=== PATIENT | male | born 1975 | race Caucasian/White ===

== ENCOUNTER 2017-08-07 14:54 | Emergency (ER) | payer OTHER ==
[2017-08-07 15:14] VITALS: BP 145/88; PULSE 71; TEMP 98.7; BMI 34.8
[2017-08-07] MEDS ORDERED: ACETAMINOPHEN 325 MG TABLET (FP) PO ONE (15:14)
--- NOTE | 2017-08-07 15:14 | PDOC ---
Rapid Medical Evaluation Time Seen by Provider: 08/07/17 15:10 Medical Evaluation: Allergies Allergy/AdvReac Type Severity Reaction Status Date / Time No Known Allergies Allergy Verified 08/07/17 15:09 08/07/17 15:10 I have performed a brief in person evaluation of this patient. The patient presents with chief complaint of : dizzyness and hand numbness and feet numbness followed by . history of TIA. Pt has these symptoms for "a while" has had workups in the past. history HTN, asthma. Pertinent PE findings: none I have ordered the following: EKG The patient will proceed to the ER for further evaluation.
[2017-08-07] MEDS ORDERED: IBUPROFEN 600 MG TABLET (FP) PO ONE ×2 (18:45→20:18)
[2017-08-07] MEDS ORDERED: ACETAMINOPHEN 325 MG TABLET (FP) ONE (20:17)
[2017-08-07] MEDS ORDERED: CYCLOBENZAPRINE HCL 10 MG TABLET (FP) ONE (20:18)
[2017-08-07] MEDS ORDERED: CYCLOBENZAPRINE HCL 5 MG TABLET PO ONE (20:30)
--- NOTE | 2017-08-07 22:25 | PDOC ---
Attending Attestation - Resident Resident Name: RubénMarybethy - ED Attending Attestation I have performed the following: I have examined & evaluated the patient, The case was reviewed & discussed with the resident, I agree w/resident's findings & plan, Exceptions are as noted - Medical Decision Making 08/07/17 22:24 I, Dr. Guerita Fonseca, DO, attest that this document has been prepared under my direction and personally reviewed by me in its entirety. I further attest, that it accurately reflects all work, treatment, procedures and medical decision -making performed by me. 08/07/17 22:27 a/p: 42yo male with neck pain and hand tingling x 3 years -+phalens, +tinels does have mild c spine ttp, no step offs or deformitis neuro intact suspect peripheral neuropahty will obtain ct cervical spine -discussed with Dr. Hemphill who will see the patient for poss carpel tunnel 08/07/17 22:29 ct shows herniated disc disease will give neurosx follow up pt will need outpt mri 08/07/17 22:35 discussed imaging results with the patient. pt feeling better. given report of ct cervical spine recommend outpt mri will give neurosx and hand surgery for followup case discussed earlier with dr. tejeda family agrees with the plan answered all questions 08/07/17 23:05 <Guerita Fonseca - Last Filed: 08/07/17 23:05> - HPI HPI: 08/07/17 23:14 The patient is a 42 year old male, with a significant past medical history of asthma, hypertension, acute TIA, who presents to the emergency department complaining of left arm tingling and bilateral hand tingling for approx. 3 years. The patient reports the tingling is mostly in his left arm and occurs when he is resting his arm on the interior side of his car when driving home. 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 The patient reports he has seen his neurologist, security installation sales technician and PCP prior to todays visit and they have all worked him up with normal results. The patient reports all prior MRIs have been normal. He denies recent fever, chills, headache or dizziness. He denies recent nausea, vomit, diarrhea or constipation. He denies recent chest pain or shortness of breath. - Physicial Exam PE: 08/07/17 23:15 GENERAL: Awake, alert, and fully oriented, in no acute distress HEAD: No signs of trauma EYES: PERRLA, EOMI, sclera anicteric, conjunctiva clear ENT: Auricles normal inspection, hearing grossly normal, nares patent, oropharynx clear without exudates. Moist mucosa NECK: +Tenderness to cervical spine. Normal ROM, supple, no lymphadenopathy, JVD , or masses BACK: +Paraspinal tenderness. LUNGS: Breath sounds equal, clear to auscultation bilaterally. No wheezes, and no crackles HEART: Regular rate and rhythm, normal S1 and S2, no murmurs, rubs or gallops ABDOMEN: Soft, nontender, normoactive bowel sounds. No guarding, no rebound. No masses EXTREMITIES: +Tinels. +Phalen maneuvers. Normal range of motion, no edema. No clubbing or cyanosis. No cords, erythema, or tenderness NEUROLOGICAL: Cranial nerves II through XII grossly intact. Normal speech, normal gait SKIN: Warm, Dry, normal turgor, no rashes or lesions noted. <Scott Molina - Last Filed: 08/07/17 23:52>
--- NOTE | 2017-08-07 22:30 | PDOC ---
History of Present Illness - General Chief Complaint: Chest Pain Stated Complaint: CHEST PAIN Time Seen by Provider: 08/07/17 15:10 - History of Present Illness Initial Comments: 08/07/17 23:03 42M with 3year history of tingling in hands, wrists, elboys and sharp pains in legs. Saw neurologist, co chairman and PCP who never found anything abnormal. MRI's, neck cta's never found anything. Diagnosed with TIA in this ED in the past for tingling sensation to one half on her face. Presents today for similar causes and was worried it was "another TIA" 08/07/17 23:13 Old CTA neck showed: Mild anterior spondylosis at C5-C6 level. C3-C4 mild anterior and posterior spur formation slightly deforming the thecal sac and probably slightly flattening the left anterior surface of the cervical cord Past History - Past Medical History Allergies/Adverse Reactions: Allergies Allergy/AdvReac Type Severity Reaction Status Date / Time No Known Allergies Allergy Verified 08/07/17 15:09 Home Medications: Ambulatory Orders Albuterol Sulfate 5 mg IH QID PRN 08/07/17 Cyclobenzaprine HCl [Flexeril -] 10 mg PO HS #10 tablet 08/07/17 Fluticasone/Salmeterol [Advair 250-50 Diskus] 1 each IH QID PRN 08/07/17 Ibuprofen [Motrin -] 600 mg PO BID PRN #15 tablet 08/07/17 Nebivolol [Bystolic -] 5 mg PO DAILY 08/07/17 Asthma: Yes Cancer: No Cardiac Disorders: No CVA: No COPD: No CHF: No Dementia: No Diabetes: No HTN: Yes Seizures: No - Surgical History Neurologic Surgery: No - Immunization History Immunization Up to Date: Yes - Suicide/Smoking/Psychosocial Hx Smoking History: Never smoked Have you smoked in the past 12 months: No Number of Cigarettes Smoked Daily: 0 Cigars Per Day: 0 Hx Alcohol Use: No Drug/Substance Use Hx: No Substance Use Type: None Hx Substance Use Treatment: No Review of Systems - Review of Systems Able to Perform ROS?: Yes Constitutional: No: Symptoms Reported HEENTM: No: Symptoms Reported Respiratory: No: Symptoms reported Cardiac (ROS): No: Symptoms Reported ABD/GI: No: Symptoms Reported : No: Symptoms Reported Musculoskeletal: Yes: See HPI Integumentary: No: Symptoms Reported Neurological: Yes: See HPI All Other Systems: Reviewed and Negative *Physical Exam - Vital Signs Last Vital Signs Temp Pulse Resp BP Pulse Ox 98.7 F 71 19 145/88 98 08/07/17 15:10 08/07/17 15:10 08/07/17 15:10 08/07/17 15:10 08/07/17 15:10 - Physical Exam General Appearance: Yes: Nourished, Appropriately Dressed. No: Apparent Distress HEENT: positive: EOMI, RENATO, Normal ENT Inspection Neck: negative: Tender Respiratory/Chest: positive: Lungs Clear, Normal Breath Sounds. negative: Chest Tender, Respiratory Distress Cardiovascular: positive: Regular Rhythm, Regular Rate, S1, S2 Gastrointestinal/Abdominal: positive: Normal Bowel Sounds, Soft, Protuberent. negative: Tender Musculoskeletal: positive: Normal Inspection Neurologic: positive: Normal Mood/Affect, Normal Response, Motor Strength 5/5, Sensory Deficit, Other (Positive Tinel's and Positive Phallen's sign) ED Treatment Course - RADIOLOGY Radiology Studies Ordered: Category Date Time Status CERVICAL SPINE CT W/O CONTR [CT] Stat CT Scan 08/07/17 18:37 Completed ELBOW-LEFT [RAD] Stat Radiology 08/07/17 18:39 Taken - Medications Given in the ED: ED Medications Discontinued Medications Generic Name Dose Route Start Last Admin Trade Name Freq PRN Reason Stop Dose Admin Acetaminophen 650 mg 08/07/17 15:14 08/07/17 20:22 Tylenol - PO 08/07/17 15:15 650 mg ONCE ONE Administration Cyclobenzaprine HCl 5 mg 08/07/17 20:30 08/07/17 20:22 Cyclobenzaprine Hcl PO 08/07/17 20:31 5 mg ONCE ONE Administration Ibuprofen 600 mg 08/07/17 18:45 08/07/17 20:22 Motrin - PO 08/07/17 18:46 600 mg ONCE ONE Administration Medical Decision Making - Medical Decision Making 08/07/17 23:10 This is likely b/l carpal tunnel syndrome. Previous neck CTA showed some Mild anterior spondylosis at C5-C6 level. C3-C4 mild anterior and posterior spur formation slightly deforming the thecal sac and probably slightly flattening the left anterior surface of the cervical cord. Will discharge with referal to Dr. Hemphill who was consulted on the case and will see the patient next week, and Dr. Garcia. flexeril and motrin. 08/07/17 23:14 *DC/Admit/Observation/Transfer Diagnosis at time of Disposition: Carpal tunnel syndrome on both sides, Cervical radiculopathy due to degenerative joint disease of spine - Discharge Dispostion Disposition: HOME Admit: No - Prescriptions Prescriptions: Cyclobenzaprine HCl [Flexeril -] 10 mg PO HS #10 tablet Ibuprofen [Motrin -] 600 mg PO BID PRN #15 tablet PRN Reason: Pain - Referrals Referrals: Rhianna Gee MD [Primary Care Provider] - Juan Manuel Garcia MD [Staff Physician] - Mateo Hemphill MD [Staff Physician] - - Patient Instructions Printed Discharge Instructions: Carpal Tunnel Syndrome (Alternative Therapy), DI for Carpal Tunnel Syndrome, DI for Cervical Radiculopathy Additional Instructions: Call Dr. Hemphill at [phone] - Post Discharge Activity Forms/Work/School Notes: Back to Work
--- NOTE | 2017-08-08 13:30 | EKG ---
Test Reason : Blood Pressure : / mmHG Vent. Rate : 063 BPM Atrial Rate : 063 BPM P-R Int : 142 ms QRS Dur : 094 ms QT Int : 424 ms P-R-T Axes : 030 056 020 degrees QTc Int : 433 ms NORMAL SINUS RHYTHM NONSPECIFIC T WAVE ABNORMALITY ABNORMAL ECG Confirmed by MD AMANDA, BRITTNI ([id number]) on 08/08/2017 1:29:48 PM Referred By: Confirmed By:BRITTNI PATEL MD
[2017-08-08] MEDS ORDERED: CYCLOBENZAPRINE HCL 5 MG TABLET PO ONE (18:37)
== END 2017-08-07 23:30 | disposition home or self-care (01) ==
LOC: JER 14:54
DX: M54.12 Radiculopathy, cervical region (principal); G56.03 Carpal tunnel syndrome, bilateral upper limbs
CPT/HCPCS: 72125-TC; 73070-TC-LT; 93005; 93010; 99282-25

== ENCOUNTER 2018-08-16 13:18 | Emergency (ER) | payer OTHER ==
[2018-08-16 13:31] VITALS: BP 129/86; PULSE 67; BMI 34.8
--- NOTE | 2018-08-16 14:25 | PDOC ---
Attending Attestation - Resident Resident Name: Melody Green - ED Attending Attestation I have performed the following: I have examined & evaluated the patient, The case was reviewed & discussed with the resident, I agree w/resident's findings & plan, Exceptions are as noted - HPI HPI: 08/16/18 14:24 The patient is a 43 year old male with PMHx of HTN, asthma, TIAs, chronic numbness & tingling in UE, who presents with dizziness since yesterday. Patient reports positional dizziness that began while at [employer]. He states that the dizziness last for a few seconds and feels off balance but then resolved only to recur later when he was at home. Symptoms only present with movement and is complete resolved if he stays still. Patient also reports associated nausea w/o vomit. Patient states that he comes in today because of his prior h/ o TIAs and was worried because his father from a stroke. Patient mentioned that he had a cold 2 weeks ago (runny nose, congestion) that has since resolved. Denies any headache, blurry or double vision, changes in speech, fever, chills, chest pain, palpitations, diarrhea, melena, bpr, urinary complaints, numbness or tingling. Denies any recent injuries to head or other body parts. Family HX: Father from stroke PCP: Dr. Gee - Physicial Exam PE: 08/16/18 16:14 GENERAL: The patient is awake, alert, and fully oriented, Nontoxic - in no acute distress. HEAD: Normocephalic, atraumatic. EYES: extraocular movements intact, sclera anicteric, conjunctiva clear. ENT: Normal voice, Moist mucous membranes. NECK: Normal range of motion, supple LUNGS: Breath sounds equal, clear to auscultation bilaterally. No wheezes, no rhonchi, no rales. HEART: Regular rate and rhythm, normal S1 and S2 without murmur, rub or gallop. ABDOMEN: Soft, nontender, normoactive bowel sounds. No guarding, no rebound. . No CVA tenderness EXTREMITIES: Normal range of motion, no edema. No clubbing or cyanosis. No cords, erythema, or tenderness. NEUROLOGICAL: No facial assymetry, Normal speech, normal finger to nose, rapid alternating movements, normal gait, no dysmetria, PSYCH: Normal mood, normal affect. SKIN: Warm, Dry, normal turgor, - Medical Decision Making 08/16/18 16:14 43y M hx of asthma, tia without resudal symptoms presents with vertigo ( described as room spinning senesation) since yesterday - started acutely when he stood up at [employer] yesterday, then resolved after a few seconds but recurred later when he went home and recurrs intermittently typicalyl with mvoeemnt and completely resolves at rest. associated with nausea w/o vomiting, double vision , dysarthria, blurred vision, headache, focal numbness/tingling/weakness, neck pain, neck stiffness. pt endorses a recent URI 2 weeks ago, butsytoms as synce resolved. labs reviewed unremarkable exam unrmarkble with out signs or symptoms of central vertigo currently ambulating normally with normal gait suspect bppv improved with meclizine will dc with zofran, meclizine return precautions were discussed Heart Score/ECG Review - ECG Impressions Comment:: 08/16/18 16:15 Twelve-lead EKG was performed and reviewed by me. There is normal sinus rhythm with a normal rate. Rate of 62 The axis is normal. The intervals are normal. There is normal R wave progression There are no ST or T wave abnormalities. Impression: Normal twelve-lead EKG
[2018-08-16] MEDS ORDERED: MECLIZINE HCL 25 MG TABLET (FP) PO ONE (14:27)
[2018-08-16] MEDS ORDERED: ONDANSETRON 4 MG/2 ML VIAL IVPUSH ONE (14:27)
[2018-08-16] MEDS ORDERED: SODIUM CHLORIDE 0.9% 500 ML INFUS.BAG IV ONE (14:27)
--- NOTE | 2018-08-16 14:46 | PDOC ---
History of Present Illness - General Chief Complaint: Lightheaded Stated Complaint: dizzness Time Seen by Provider: 08/16/18 14:24 - History of Present Illness Initial Comments: Amilcar Corea is a 43yo man with a PMH asthma, HTN, TIA, recent ED visit for likely carpal tunnel syndrome who presents today with positional vertigo and associated nausea since yesterday evening. He states that he first noticed feeling dizzy when standing up at [employer]. Since then, he has noticed the sensation when changing position suddenly or when turning his head. He states that it feels similar to feeling drunk. He has nausea associated with the dizziness but has not had any emesis. He denies any nasal/sinus or ear congestion, hearing difficulty, headache, sore throat, fever/ chills, or neurological changes. He feels completely well other than the dizziness. He has never had anything similar happen in the past. Past History - Past Medical History Allergies/Adverse Reactions: Allergies Allergy/AdvReac Type Severity Reaction Status Date / Time No Known Allergies Allergy Verified 08/07/17 15:09 Home Medications: Ambulatory Orders Albuterol Sulfate 5 mg IH QID PRN 08/07/17 Fluticasone/Salmeterol [Advair 250-50 Diskus] 1 each IH QID PRN 08/07/17 Nebivolol [Bystolic -] 5 mg PO DAILY 08/07/17 Meclizine HCl [Antivert -] 25 mg PO QID PRN #28 tablet 08/16/18 Ondansetron HCl [Zofran] 4 mg PO TID PRN #21 tablet 08/16/18 Pantoprazole Sodium [Protonix] 40 mg PO DAILY 08/16/18 Asthma: Yes Cancer: No Cardiac Disorders: No CVA: No COPD: No CHF: No Dementia: No Diabetes: No HTN: Yes Seizures: No - Surgical History Neurologic Surgery: No - Immunization History Immunization Up to Date: Yes - Suicide/Smoking/Psychosocial Hx Smoking History: Never smoked Have you smoked in the past 12 months: No Number of Cigarettes Smoked Daily: 0 Cigars Per Day: 0 Information on smoking cessation initiated: No Hx Alcohol Use: No Drug/Substance Use Hx: No Substance Use Type: None Hx Substance Use Treatment: No Review of Systems - Review of Systems Comments:: General: No fevers, no chills, no weight or appetite change, no malaise HEENT: No changes in vision, no changes in hearing, no congestion, no sore throat CV: No chest pain, no palpitations, no LE edema Pulm: No SOB, no cough, no wheezing. h/o asthma GI: +Nausea. No vomiting, no change in bowel habits, no melena : No frequency, no urgency, no dysuria Musc: No back pain, no joint swelling, no recent injury Skin: No rash, no lesions, no erythema Endo: No excessive thirst, no heat/cold intolerance Heme: No unusual bruising or bleeding, no swollen glands Neuro: No syncope, no numbness/tingling, no focal weakness. +vertigo Vasc: No claudication Psych: No recent change in mood, no SI or HI *Physical Exam - Vital Signs Last Vital Signs Temp Pulse Resp BP Pulse Ox 67 18 129/86 98 08/16/18 13:25 08/16/18 13:25 08/16/18 13:25 08/16/18 13:25 - Physical Exam Comments: General: Comfortable, no acute distress HEENT: PERRL, EOMI, MMM, voice normal, normal neck ROM, no LAD Cards: RRR, no murmur appreciated Pulm: Comfortable on room air, clear to auscultation bilaterally Abd: Soft, nontender, nondistended Ext: Atraumatic. No LE edema. ROM intact. Strength 5/5 and equal bilaterally Vasc: Extremities WWP. Palpable radial and pedal pulses bilaterally Skin: Normal color, no rashes or lesions Neuro: A&Ox3, CN grossly intact, normal speech, motor/sensory grossly intact and symmetric. No ataxia on finger-nose or heel-su testing. Able to ambulate without difficulty, normal gait Psych: Mood appropriate to situation Moderate Sedation - Procedure Monitoring Vital Signs: Procedure Monitoring Vital Signs Temperature Pulse Rate 67 08/16/18 13:25 Respiratory Rate 18 08/16/18 13:25 Blood Pressure 129/86 08/16/18 13:25 O2 Sat by Pulse Oximetry (%) 98 08/16/18 13:25 ED Treatment Course - LABORATORY CBC & Chemistry Diagram: 08/16/18 14:43 08/16/18 14:43 Medical Decision Making - Medical Decision Making 08/16/18 14:40 Amilcar Corea is a 43yo man with a PMH asthma, HTN, TIA, recent ED visit for likely carpal tunnel syndrome who presents today with positional vertigo and associated nausea since this morning. He reports vertigo when changing position between laying and standing as well as when turning his head. He denies any recent URI, ear symptoms, GREEN, or any neurological symptoms. - CBC, CMP to evaluate for abnormalities - EKG given h/o HTN and TIA - Meclizine, zofran, IVF for symptoms 08/16/18 15:33 - Labs reviewed, no concerning abnormalities - EKG completed. NSR, HR 62, normal axis, normal intervals, no ST changes - Feels slightly better after medications. Will reassess in 20-30 minutes once IVF has finished 08/16/18 16:01 - Pt feels much better. Plans to schedule a follow up with Dr Gee tomorrow - Discussed home care and return precautions at length. He states understanding and agreement. Seen and discussed with Dr Hong. Melody Green PGY1 *DC/Admit/Observation/Transfer Diagnosis at time of Disposition: Vertigo - Discharge Dispostion Condition at time of disposition: Stable - Prescriptions Prescriptions: Meclizine HCl [Antivert -] 25 mg PO QID PRN #28 tablet PRN Reason: Vertigo Ondansetron HCl [Zofran] 4 mg PO TID PRN #21 tablet PRN Reason: Nausea And/Or Vomiting - Referrals Referrals: Rhianna Gee MD [Primary Care Provider] - - Patient Instructions Printed Discharge Instructions: DI for Benign Paroxysmal Positional Vertigo Additional Instructions: Discharge Instructions: - You were seen in the emergency department with a spinning sensation called vertigo. Your neurologic exam was normal, and your blood tests and EKG were also normal. The vertigo is likely a benign condition that will resolve over time. - You have been prescribed two medications that may be used at home for symptom relief. One is called meclizine, which is an anti-vertigo medication. This may be taken as needed every 6 hours. You have also been prescribed ondansetron ( zofran) which is an anti-nausea medication that may be taken as needed every 8 hours. - Follow up with your regular doctor within the next 1-2 days. He may choose to send you to see a neurologist for additional evaluation. - Seek immediate medical care if your symptoms worsen, you are unable to walk due to dizziness or unable to eat/drink due to nausea, or if you have any medical emergency. - Post Discharge Activity
[2018-08-16] MEDS ORDERED: MECLIZINE HCL 25 MG TABLET (FP) ONE (14:47)
[2018-08-16] MEDS ORDERED: ONDANSETRON 4 MG/2 ML VIAL ONE (14:47)
[2018-08-16 15:01] LABS: BASO % 1.1 % (0-2.0); EOS % 5.5 % (0-4.5); HEMATOCRIT 44.7 % (35.4-49); HEMOGLOBIN 15.5 GM/dL (11.7-16.9); MCH 29.3 pg (25.7-33.7); MCHC 34.6 g/dl (32.0-35.9); MEAN CELL VOLUME 84.6 fl (80-96); MEAN PLT VOLUME 7.2 fl (7.5-11.1); NEUT % 62.4 % (42.8-82.8); PLATELET COUNT 300 K/MM3 (134-434); RBC 5.28 M/mm3 (4.00-5.60); RDW 14.5 % (11.9-15.9); WHITE BLOOD COUNT 9.8 K/mm3 (4.0-10.0)
[2018-08-16 15:22] LABS: ALBUMIN 3.6 g/dl (3.4-5.0); ALK PHOS 69 U/L (45-117); ANION GAP 7 MMOL/L (8-16); BILIRUBIN,TOTAL 0.2 mg/dL (0.2-1); BLOOD UREA NITROGEN 15 mg/dL (7-18); CALCIUM 8.4 mg/dL (8.5-10.1); CHLORIDE 108 mmol/L (98-107); CO2 28 mmol/L (21-32); GLUCOSE,RANDOM 109 mg/dL (74-106); MAGNESIUM 2.3 mg/dL (1.8-2.4); PHOSPHOROUS 2.9 mg/dL (2.5-4.9); POTASSIUM 4.4 mmol/L (3.5-5.1); SGOT/AST 22 U/L (15-37); SGPT/ALT 48 U/L (13-61); SODIUM 143 mmol/L (136-145); TOT PROT 7.6 g/dl (6.4-8.2)
--- NOTE | 2018-08-17 10:56 | EKG ---
Test Reason : Blood Pressure : / mmHG Vent. Rate : 062 BPM Atrial Rate : 062 BPM P-R Int : 148 ms QRS Dur : 094 ms QT Int : 434 ms P-R-T Axes : 006 045 015 degrees QTc Int : 440 ms NORMAL SINUS RHYTHM NORMAL ECG WHEN COMPARED WITH ECG OF 07-AUG-2017 15:04, NO SIGNIFICANT CHANGE WAS FOUND Confirmed by JOEL VICK MD ([id number]) on 08/17/2018 10:56:27 AM Referred By: Confirmed By:JOEL VICK MD
== END 2018-08-16 16:20 | disposition home or self-care (01) ==
LOC: JER 13:18
PROC: 3E033GC Introduction of Other Therapeutic Substance into Peripheral Vein, Percutaneous Approach (ICD-10-PCS; principal; 2018-08-16)
DX: H81.10 Benign paroxysmal vertigo, unspecified ear (principal); I10 Essential (primary) hypertension; J45.909 Unspecified asthma, uncomplicated; Z86.73 Personal history of transient ischemic attack (TIA), and cerebral infarction without residual deficits
CPT/HCPCS: 36415; 80053; 83735; 84100; 85025; 93005; 93010; 99281-25

== ENCOUNTER 2019-05-19 23:44 | Observation (INO) | payer OTHER ==
--- NOTE | 2019-05-20 00:41 | PDOC ---
Documentation entered by Kristi Caputo SCRIBE, acting as scribe for Guerita Fonseca DO. Guerita Fonseca DO: This documentation has been prepared by the Patito menendez Adrianna, SCRIBE, under my direction and personally reviewed by me in its entirety. I confirm that the documentation accurately reflects all work, treatment, procedures, and medical decision making performed by me. Attending Attestation - Resident Resident Name: Evan Garcia - ED Attending Attestation I have performed the following: I have examined & evaluated the patient, The case was reviewed & discussed with the resident, I agree w/resident's findings & plan, Exceptions are as noted - HPI HPI: The patient is a 43 year old male, with a significant PMH of HTN, asthma, TIAs , chronic numbness & tingling in UE, who presents to the ED for evaluation of chest pain for a few hours. Patient noticed sudden onset left-sided chest pain that began after throwing out trash. He states the pain is constant and radiates to his left scapula and LUE. Denies palpitations, SOB, numbness or tingling. Allergies: NKA, NKDA Surgical History: None reported Social History: Denies EtOH, tobacco, or illicit drug use PCP: Dr. Gee - Physicial Exam PE: Constitutional: Awake, alert, oriented. No acute distress. Head: Normocephalic. Atraumatic Eyes: PERRL. EOMI. Conjunctivae are not pale. ENT: Mucous membranes are moist and intact. Posterior pharynx without exudates or erythema. Uvula midline. Neck: Supple. Full ROM. No lymphadenopathy. Chest: +Left anterior chest wall and left upper back reproducible pain. Cardiovascular: Regular rate. Regular rhythm. S1, S2 regular. Distal pulses are 2+ and symmetric. Pulmonary: No evidence of respiratory distress. Clear to auscultation bilaterally No wheezing, rales or rhonchi. Abdominal: Soft and nondistended. There is no tenderness. No rebound, guarding or rigidity. No organomegaly. No palpable masses. Good bowel sounds. Back: No CVA tenderness. Musculoskeletal: No edema. No cyanosis. No clubbing. Full range of motion in all extremities. Nocalf tenderness. Radial/pedal pulses are intact and 2+ bilaterally Skin: Skin is warm and dry. No petechiae. No purpura. Neurological: Alert and oriented to person, place, and time. Cranial nerves II -XII are grossly intact. Normal speech. Strength is grossly symmetric. No sensory deficits. Psychiatric: Good eye contact. Normal interaction, affect and behavior. - Medical Decision Making 05/20/19 01:21 I, Dr. Guerita Fonseca, DO, attest that this document has been prepared under my direction and personally reviewed by me in its entirety. I further attest, that it accurately reflects all work, treatment, procedures and medical decision -making performed by me. a/p: 43yo male with L chest and upper back pain today -states he was lifting trash bags when the pain started -reproducible L chest wall pain -no assoc n/v/d, no diaphoresis, no leg swelling, no pleuritic component, no sob -no recent coughing -hx of L hand numbness from carpal tunnel -states pain with palpation of the chest and upper back -pain radiates to the shoulder and is worse with movement -suspect MSK pain, however hx of elevated trop in the past -atypical presentation for acs, however will check trop x 2 -toradol/robaxin for pain -will monitor and reassess 05/20/19 01:46 cbc reviewed trop pending pt to ct 05/20/19 01:47 pt will have 2 trop if pain improved and trop neg x 2 ok to dc home with follow up with PMD Discharge - Discharge Information Problems reviewed: Yes Clinical Impression/Diagnosis: Chest wall pain - Follow up/Referral Referrals: Rhianna Gee MD [Primary Care Provider] - Evan Neri MD [Staff Physician] - - Patient Discharge Instructions Patient Printed Discharge Instructions: DI for Atypical Chest Pain - Post Discharge Activity Heart Score/ECG Review - ECG Intrepretation Comment:: 05/20/19 00:40 sinus at 60, nl axis, nl interval, no acute st/t wave findings, t wave inversions III which are nonspecific
[2019-05-20] MEDS ORDERED: KETOROLAC TROMETHAMINE 15 MG/ML VIAL IVPUSH ONE (00:55)
--- NOTE | 2019-05-20 00:58 | PDOC ---
History of Present Illness - General Chief Complaint: Pain Stated Complaint: PAIN ON LEFT SIDE Time Seen by Provider: 05/20/19 00:19 History Source: Patient Exam Limitations: No Limitations - History of Present Illness Initial Comments: 05/20/19 06:15 HPI: 43M PMH HTN, Asthma c/o constant burning/chest, left arm, and scapular pain that started at 7 or 8pm. Chest pain is localized to the left pectoralis region and worse w/ movement and touch. Pt works as elementary school director and states pain started after heavy lifting. Denies palpitations, sob, f/c, n/v/d, abd pain, dysuria, frequency. Denies trauma. Took aleeve for pain w/ some relief. Denies etoh, smoking, and ilicit drug use. PMH as above MEDS: per chart, bystolic for pain NKDA Past History - Past Medical History Allergies/Adverse Reactions: Allergies Allergy/AdvReac Type Severity Reaction Status Date / Time No Known Allergies Allergy Verified 05/19/19 23:57 Home Medications: Ambulatory Orders Albuterol Sulfate 5 mg IH QID PRN 08/07/17 Fluticasone/Salmeterol [Advair 250-50 Diskus] 1 each IH BID 08/07/17 Nebivolol [Bystolic -] 10 mg PO DAILY 08/07/17 Ondansetron HCl [Zofran] 4 mg PO TID PRN #21 tablet 08/16/18 Pantoprazole Sodium [Protonix] 40 mg PO DAILY 08/16/18 Meclizine HCl [Antivert -] 25 mg PO TID 05/20/19 Asthma: Yes Cancer: No Cardiac Disorders: No CVA: No COPD: No CHF: No Dementia: No Diabetes: No HTN: Yes Seizures: No - Surgical History Neurologic Surgery: No - Immunization History Immunization Up to Date: Yes - Psycho Social/Smoking Cessation Hx Smoking History: Never smoked Have you smoked in the past 12 months: No Number of Cigarettes Smoked Daily: 0 Cigars Per Day: 0 Information on smoking cessation initiated: No Hx Alcohol Use: No Drug/Substance Use Hx: No Substance Use Type: None Hx Substance Use Treatment: No Review of Systems - Review of Systems Able to Perform ROS?: Yes Comments:: 05/20/19 06:15 ROS: CONSTITUTIONAL: Denies F / C HEENT: Denies lightheadedness, dizziness, changes in vision / hearing. RESP: Denies SOB CARD: Endorses chest pain. Denies substernal chest pain, palpitations GI: Denies N / V / D, abdominal pain, bloody stool, inability to tolerate PO : Denies dysuria, frequency SKIN: Denies rashes NEURO: Denies acute numbness, tingling, weakness Is the patient limited Romanian proficient: No *Physical Exam - Vital Signs Last Vital Signs Temp Pulse Resp BP Pulse Ox 97.5 F L 62 20 146/86 98 05/19/19 23:57 05/19/19 23:57 05/19/19 23:57 05/19/19 23:57 05/19/19 23:57 - Physical Exam Comments: 05/20/19 06:15 PE: GEN: Well appearing, NAD, comfortable. AAOx3 HEENT: NC/AT. No facial asymmetry. Moist mucous membranes. Normal voice. Supple neck w/ FROM. CV: +TTP of the left pectoralis, mid-axillary, and left scapula. No rashes. No deformities of chest wall. S1/S2, RRR, no m/r/g LUNG: CTAB, no wheezes, crackles, rales, rhonchi. GI: soft, ndnt, +BS, no guarding, no rebound. No masses. EXTREMITIES: 2+ distal pulses. No LE edema. No obvious deformities of all extremities. SKIN: warm, dry, normal turgor PSYCH: normal mood and affect NEURO: Moving all extremities well. 5/5 UE strength b/l. BACK: No midline TTP, step-offs, or deformities ED Treatment Course - LABORATORY CBC & Chemistry Diagram: 05/20/19 01:29 05/20/19 01:29 - RADIOLOGY Radiology Studies Ordered: Category Date Time Status CHEST PA & LAT [RAD] Stat Radiology 05/20/19 00:56 Ordered Medical Decision Making - Medical Decision Making 05/20/19 01:16 MDM: 43M with reproducible left chest, scapular, and arm pain after heavy lifting tonight. Previously had elevated troponins in system. DDx - likely MSK, r/o ACS, AoD, PTX - CBC, CMP, Cardiac, Coag - EKG - CXR - Toradol EKG 05/19/19 23:43 HR 60 DC 160 QRS 90 QTc 432 NSR Twave inversion in V3 ( unchanged from 08/16/18 EKG). 05/20/19 02:20 CXR clear by ED Team Elevated Troponin, CK, CK-MB ASA Admit Tele // ADMITTED Discharge - Discharge Information Problems reviewed: Yes Clinical Impression/Diagnosis: Chest wall pain Condition: Stable - Admission Yes - Follow up/Referral - Patient Discharge Instructions - Post Discharge Activity
[2019-05-20] MEDS ORDERED: METHOCARBAMOL 500 MG TABLET PO ONE (01:02)
[2019-05-20] MEDS ORDERED: METHOCARBAMOL 500 MG TABLET ONE (01:34)
[2019-05-20] MEDS ORDERED: KETOROLAC TROMETHAMINE 15 MG/ML VIAL ONE (01:34)
[2019-05-20 01:38] LABS: BASO % 0.7 % (0-2.0); EOS % 9.8 % (0-4.5); HEMATOCRIT 44.6 % (35.4-49); HEMOGLOBIN 14.8 GM/dL (11.7-16.9); LYMPH % 34.6 % (8-40); MCH 28.2 pg (25.7-33.7); MCHC 33.1 g/dl (32.0-35.9); MEAN CELL VOLUME 85.1 fl (80-96); MEAN PLT VOLUME 7.3 fl (7.5-11.1); MONO % 7.8 % (3.8-10.2); NEUT % 47.1 % (42.8-82.8); PLATELET COUNT 296 K/MM3 (134-434); RBC 5.25 M/mm3 (4.00-5.60); RDW 14.4 % (11.9-15.9); WHITE BLOOD COUNT 10.4 K/mm3 (4.0-10.0)
[2019-05-20 01:51] LABS: INR 0.97 (0.83-1.09); PROTHROMBIN TIME (PATIENT) 11.4 SEC (9.7-13.0)
[2019-05-20 02:03] LABS: ALBUMIN 3.4 g/dl (3.4-5.0); BILIRUBIN,TOTAL 0.4 mg/dL (0.2-1); BLOOD UREA NITROGEN 15.2 mg/dL (7-18); CALCIUM 8.3 mg/dL (8.5-10.1); CREATININE 1.1 mg/dL (0.55-1.3)
[2019-05-20] MEDS ORDERED: ASPIRIN 81 MG CHEWABLE TABLETS PO ONE (02:18)
[2019-05-20] MEDS ORDERED: ASPIRIN 81 MG CHEWABLE TABLETS ONE (02:30)
[2019-05-20 03:21] LABS: URINE APPEARANCE CLEAR; URINE BILIRUBIN NEGATIVE (NEGATIVE); URINE COLOR YELLOW; URINE GLUCOSE (UA) NEGATIVE (NEGATIVE); URINE KETONE NEGATIVE (NEGATIVE); URINE LEUK ESTERASE NEGATIVE (NEGATIVE); URINE NITRITE NEGATIVE (NEGATIVE); URINE PROTEIN NEGATIVE (NEGATIVE); URINE UROBILINOGEN 0.2 mg/dL (0.2-1.0)
--- NOTE | 2019-05-20 03:24 | HP ---
Admitting History and Physical - Primary Care Physician PCP: Rhianna Gee - Admission Chief Complaint: Chest Pain History of Present Illness: This is a 43 year old male, with a significant PMH of HTN, Asthma, TIAs, Chronic Parasthesias in UE. Who presents to the ED for left sided chest pain with radiation to his arm, for a few hours x yesterday. Patient reports sudden onset left-sided chest pain that began after throwing out trash. He states the pain is constant and radiates to his left scapula and LUE. Patient denies palpitations, SOB, numbness or tingling. 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 History of Recent Travel: No Home Medications - Allergies Allergies/Adverse Reactions: Allergies Allergy/AdvReac Type Severity Reaction Status Date / Time No Known Allergies Allergy Verified 05/19/19 23:57 - Home Medications Home Medications: Ambulatory Orders Albuterol Sulfate 5 mg IH QID PRN 08/07/17 Fluticasone/Salmeterol [Advair 250-50 Diskus] 1 each IH BID 08/07/17 Nebivolol [Bystolic -] 10 mg PO DAILY 08/07/17 Ondansetron HCl [Zofran] 4 mg PO TID PRN #21 tablet 08/16/18 Pantoprazole Sodium [Protonix] 40 mg PO DAILY 08/16/18 Meclizine HCl [Antivert -] 25 mg PO TID 05/20/19 Family Medical History Family History: Unable to Obtain Review of Systems - Review of Systems Constitutional: reports: No Symptoms Eyes: reports: No Symptoms HENT: reports: No Symptoms Neck: reports: No Symptoms Cardiovascular: reports: Chest Pain Respiratory: reports: No Symptoms Gastrointestinal: reports: No Symptoms Genitourinary: reports: No Symptoms Breasts: reports: No Symptoms Reported Musculoskeletal: reports: Extremity Pain, Joint Pain Integumentary: reports: No Symptoms Neurological: reports: No Symptoms Endocrine: reports: No Symptoms Hematology/Lymphatic: reports: No Symptoms Psychiatric: reports: No Symptoms Physical Examination Vital Signs: Vital Signs Temperature 97.5 F L 05/19/19 23:57 Pulse Rate 62 05/19/19 23:57 Respiratory Rate 20 05/19/19 23:57 Blood Pressure 146/86 05/19/19 23:57 O2 Sat by Pulse Oximetry (%) 98 05/19/19 23:57 Constitutional: Yes: Well Nourished, No Distress, Calm Eyes: Yes: WNL, Conjunctiva Clear, EOM Intact, PERRL HENT: Yes: WNL, Atraumatic, Normocephalic Neck: Yes: WNL, Supple, Trachea Midline Cardiovascular: Yes: WNL, Regular Rate and Rhythm, S1, S2 Respiratory: Yes: WNL, Regular, CTA Bilaterally Gastrointestinal: Yes: WNL, Normal Bowel Sounds, Soft, Abdomen, Obese Renal/: Yes: WNL Breast(s): Yes: WNL Musculoskeletal: Yes: WNL Extremities: Yes: WNL Edema: No Peripheral Pulses WNL: Yes Neurological: Yes: WNL, Alert, Oriented ...Motor Strength: WNL Psychiatric: Yes: WNL, Alert, Oriented Labs: CBC, BMP 05/20/19 01:29 05/20/19 01:29 Laboratory Results - last 24 hr 05/20/19 05/20/19 05/20/19 01:29 01:29 01:29 WBC 10.4 H RBC 5.25 Hgb 14.8 Hct 44.6 MCV 85.1 MCH 28.2 MCHC 33.1 RDW 14.4 Plt Count 296 MPV 7.3 L Absolute Neuts (auto) 4.9 Neutrophils % 47.1 D Lymphocytes % 34.6 D Monocytes % 7.8 Eosinophils % 9.8 H Basophils % 0.7 Nucleated RBC % 0 PT with INR 11.40 INR 0.97 Sodium 140 Potassium 4.0 Chloride 105 Carbon Dioxide 29 Anion Gap 6 L BUN 15.2 Creatinine 1.1 Est GFR (CKD-EPI)AfAm 95.46 Est GFR (CKD-EPI)NonAf 82.36 Random Glucose 90 Calcium 8.3 L Phosphorus Magnesium Total Bilirubin 0.4 AST 29 ALT 49 Alkaline Phosphatase 64 Creatine Kinase 731 H Creatine Kinase Index 1.0 CK-MB (CK-2) 7.6 H Troponin I 0.07 H Total Protein 7.0 Albumin 3.4 Triglycerides Cholesterol Total LDL Cholesterol HDL Cholesterol TSH Urine Color Urine Appearance Urine pH Ur Specific [place] Urine Protein Urine Glucose (UA) Urine Ketones Urine Blood Urine Nitrite Urine Bilirubin Urine Urobilinogen Ur Leukocyte Esterase Opiates Screen Methadone Screen Barbiturate Screen Phencyclidine Screen Ur Amphetamines Screen MDMA (Ecstasy) Screen Benzodiazepines Screen Cocaine Screen U Marijuana (THC) Screen 05/20/19 05/20/19 03:08 03:08 WBC RBC Hgb Hct MCV MCH MCHC RDW Plt Count MPV Absolute Neuts (auto) Neutrophils % Lymphocytes % Monocytes % Eosinophils % Basophils % Nucleated RBC % PT with INR INR Sodium Potassium Chloride Carbon Dioxide Anion Gap BUN Creatinine Est GFR (CKD-EPI)AfAm Est GFR (CKD-EPI)NonAf Random Glucose Calcium Phosphorus Magnesium Total Bilirubin AST ALT Alkaline Phosphatase Creatine Kinase Creatine Kinase Index CK-MB (CK-2) Troponin I Total Protein Albumin Triglycerides Cholesterol Total LDL Cholesterol HDL Cholesterol TSH Urine Color Yellow Urine Appearance Clear Urine pH 5.0 Ur Specific [place] 1.027 Urine Protein Negative Urine Glucose (UA) Negative Urine Ketones Negative Urine Blood Negative Urine Nitrite Negative Urine Bilirubin Negative Urine Urobilinogen 0.2 Ur Leukocyte Esterase Negative Opiates Screen Negative Methadone Screen Negative Barbiturate Screen Negative Phencyclidine Screen Negative Ur Amphetamines Screen Negative MDMA (Ecstasy) Screen Negative Benzodiazepines Screen Negative Cocaine Screen Negative U Marijuana (THC) Screen Negative Current Medications Generic Name Dose Route Start Last Admin Trade Name Freq PRN Reason Stop Dose Admin Albuterol Sulfate 2 puff 05/20/19 05:25 Ventolin Hfa Inhaler - IH Q6H PRN SHORT OF BREATH/WHEEZING Aspirin 81 mg 05/21/19 10:00 Asa - PO DAILY [facility] Budesonide/Formoterol Fumarate 2 puff 05/20/19 10:00 Symbicort 80/4.5mcg - IH BID [facility] Nebivolol 10 mg 05/20/19 10:00 Bystolic - PO DAILY [facility] Pantoprazole Sodium 40 mg 05/20/19 10:00 Protonix - PO DAILY [facility] Imaging - Results Chest X-ray: Image Reviewed EKG: Image Reviewed Problem List - Problems (1) Chest pain Assessment/Plan: r/o ACS HEART Score 3-4 LOGAN 2 Cardiac monitoring Serial Enzymes elevated x1, possibly due to ?CHIARA, vs exertion vs rhabdomylosis Will continue to trend CK 731 Echo in am UDT-pending Chest Xray image reviewed EKG- reviewed Asa given in ED, continue Lipid Panel Code(s): R07.9 - CHEST PAIN, UNSPECIFIED (2) Hypertension Assessment/Plan: stable Monitor BP Continue home med Monitor renal function Code(s): I10 - ESSENTIAL (PRIMARY) HYPERTENSION (3) Asthma Assessment/Plan: stable No acute flare Continue home med Code(s): J45.909 - UNSPECIFIED ASTHMA, UNCOMPLICATED Assessment/Plan This is a 43 y/o man PMHx of HTN, Asthma. Placed in Telemetry Observation for Chest Pain r/o ACS for further evaluation of their emergent condition. Plan: See Problem List FEN PO fluids as tolerated Replete lytes prn Low Na Diet Code Status: Full Code Dispo: Observation Visit type - Emergency Visit Emergency Visit: Yes ED Registration Date: 05/20/19 Care time: The patient presented to the Emergency Department on the above date and was hospitalized for further evaluation of their emergent condition. - New Patient This patient is new to me today: Yes Date on this admission: 05/20/19 - Critical Care Critical Care patient: No
[2019-05-20 03:53] LABS: COCAINE, UR NEGATIVE ng/ml (CUTOFF=300); METHADONE, UR NEGATIVE ng/ml (CUTOFF=300); OPIATES, URI NEGATIVE ng/ml (CUTOFF=300); PHENCYCLIDINE,URINE NEGATIVE ng/ml (CUTOFF=25); URINE AMPHETAMINES NEGATIVE ng/ml (CUTOFF=500); URINE BARBITURATES NEGATIVE ng/ml (CUTOFF=200); URINE BENZODIAZEPINES NEGATIVE ng/ml (CUTOFF=200)
[2019-05-20] MEDS ORDERED: ALBUTEROL SO4 8 GM HFA INHALER IH PRN (05:25)
[2019-05-20 06:49] VITALS: BMI 35.9
[2019-05-20 08:13] LABS: MAGNESIUM 2.2 mg/dL (1.8-2.4); PHOSPHOROUS 3.8 mg/dL (2.5-4.9)
[2019-05-20] MEDS ORDERED: NEBIVOLOL 10 MG TABLET (FP) PO SCH (10:00)
--- NOTE | 2019-05-20 10:17 | CON.CARD ---
Cardiology Consult (text) - Consultation Consultation Note: cc: cp hpi: 43 m hx htn, asthma, here with cp. Started yesterday after lifting/ throwing garbage bags at work. Center/left chest, feels like bruised muscle. Worse with movement and touch. No associated sxs. No sob palps dizzy loc pnd orthopnea le edema. pmh: per hpi psh: no surgery fam: no hx premature cad or scd, +htn social: no tob ros: per hpi; no nvd, fever, cough, nasal congestion, rash, vision changes, GIB , hematuria; all others nl meds: Home Medications Medication Instructions Recorded Albuterol Sulfate 5 mg IH QID PRN 08/07/17 Fluticasone/Salmeterol [Advair 1 each IH BID 08/07/17 250-50 Diskus] Nebivolol [Bystolic -] 10 mg PO DAILY 08/07/17 Ondansetron HCl [Zofran] 4 mg PO TID PRN #21 tablet 08/16/18 Pantoprazole Sodium [Protonix] 40 mg PO DAILY 08/16/18 Meclizine HCl [Antivert -] 25 mg PO TID 05/20/19 pe: Vital Signs Period Temp Pulse Resp BP Sys/Anderson Pulse Ox Last 24 Hr 97.1 F-98.3 F 57-63 18-20 136-160/84-101 98-100 nad, no jvd rrr s1s2 no mrg cta bl nl eff aaox3 abd nt nd pos bs no le e/c/c pos dp pt no jaundice diaphoresis +chest wall tenderness Laboratory Last Values WBC 10.4 K/mm3 (4.0-10.0) H 05/20/19 01:29 RBC 5.25 M/mm3 (4.00-5.60) 05/20/19 01:29 Hgb 14.8 GM/dL (11.7-16.9) 05/20/19 01:29 Hct 44.6 % (35.4-49) 05/20/19 01:29 MCV 85.1 fl (80-96) 05/20/19 01:29 MCH 28.2 pg (25.7-33.7) 05/20/19 01: MCHC 33.1 g/dl (32.0-35.9) 05/20/19 01:29 RDW 14.4 % (11.9-15.9) 05/20/19 01:29 Plt Count 296 K/MM3 (134-434) 05/20/19 01:29 MPV 7.3 fl (7.5-11.1) L 05/20/19 01:29 Absolute Neuts (auto) 4.9 K/mm3 (1.5-8.0) 05/20/19 01:29 Neutrophils % 47.1 % (42.8-82.8) D 05/20/19 01:29 Lymphocytes % 34.6 % (8-40) D 05/20/19 01:29 Monocytes % 7.8 % (3.8-10.2) 05/20/19 01: Eosinophils % 9.8 % (0-4.5) H 05/20/19 01:29 Basophils % 0.7 % (0-2.0) 05/20/19 01: Nucleated RBC % 0 % (0-0) 05/20/19 01:29 PT with INR 11.40 SEC (9.7-13.0) 05/20/19 01:29 INR 0.97 (0.83-1.09) 05/20/19 01:29 Sodium 140 mmol/L (136-145) 05/20/19 01:29 Potassium 4.0 mmol/L (3.5-5.1) 05/20/19 01:29 Chloride 105 mmol/L (98-107) 05/20/19 01:29 Carbon Dioxide 29 mmol/L (21-32) 05/20/19 01:29 Anion Gap 6 MMOL/L (8-16) L 05/20/19 01:29 BUN 15.2 mg/dL (7-18) 05/20/19 01:29 Creatinine 1.1 mg/dL (0.55-1.3) 05/20/19 01:29 Est GFR (CKD-EPI)AfAm 95.46 05/20/19 01:29 Est GFR (CKD-EPI)NonAf 82.36 05/20/19 01:29 Random Glucose 90 mg/dL (74-106) 05/20/19 01:29 Calcium 8.3 mg/dL (8.5-10.1) L 05/20/19 01:29 Phosphorus 3.8 mg/dL (2.5-4.9) 05/20/19 07:00 Magnesium 2.2 mg/dL (1.8-2.4) 05/20/19 07:00 Total Bilirubin 0.4 mg/dL (0.2-1) 05/20/19 01:29 AST 29 U/L (15-37) 05/20/19 01:29 ALT 49 U/L (13-61) 05/20/19 01:29 Alkaline Phosphatase 64 U/L (45-117) 05/20/19 01:29 Creatine Kinase 731 U/L (26-308) H 05/20/19 01:29 Creatine Kinase Index 1.0 % (0.0-5.0) 05/20/19 01:29 CK-MB (CK-2) 7.6 ng/mL (0.5-3.6) H 05/20/19 01:29 Troponin I 0.05 ng/ml (0.00-0.05) 05/20/19 07:00 Total Protein 7.0 g/dl (6.4-8.2) 05/20/19 01:29 Albumin 3.4 g/dl (3.4-5.0) 05/20/19 01:29 Triglycerides 121 mg/dL (0-150) 05/20/19 07:00 Cholesterol 188 mg/dL (50-200) 05/20/19 07:00 Total LDL Cholesterol 126 mg/dL (5-100) H 05/20/19 07:00 HDL Cholesterol 41 mg/dL (40-60) 05/20/19 07:00 TSH 2.79 uIU/ml (0.358-3.74) 05/20/19 07:00 Urine Color Yellow 05/20/19 03:08 Urine Appearance Clear 05/20/19 03:08 Urine pH 5.0 (5.0-8.0) 05/20/19 03:08 Ur Specific [place] 1.027 (1.010-1.035) 05/20/19 03:08 Urine Protein Negative (NEGATIVE) 05/20/19 03:08 Urine Glucose (UA) Negative (NEGATIVE) 05/20/19 03:08 Urine Ketones Negative (NEGATIVE) 05/20/19 03:08 Urine Blood Negative (NEGATIVE) 05/20/19 03:08 Urine Nitrite Negative (NEGATIVE) 05/20/19 03:08 Urine Bilirubin Negative (NEGATIVE) 05/20/19 03:08 Urine Urobilinogen 0.2 mg/dL (0.2-1.0) 05/20/19 03:08 Ur Leukocyte Esterase Negative (NEGATIVE) 05/20/19 03:08 Opiates Screen Negative ng/ml (OVCJSO=858) 05/20/19 03:08 Methadone Screen Negative ng/ml (UVCGWV=254) 05/20/19 03:08 Barbiturate Screen Negative ng/ml (PYFJGK=320) 05/20/19 03:08 Phencyclidine Screen Negative ng/ml (CUTOFF=25) 05/20/19 03:08 Ur Amphetamines Screen Negative ng/ml (HMKBHT=295) 05/20/19 03:08 MDMA (Ecstasy) Screen Negative ng/ml (WRGWWF=720) 05/20/19 03:08 Benzodiazepines Screen Negative ng/ml (LAMBUL=759) 05/20/19 03:08 Cocaine Screen Negative ng/ml (HKNSZH=409) 05/20/19 03:08 U Marijuana (THC) Screen Negative ng/ml (CUTOFF=50) 05/20/19 03:08 exercise stress echo 09/2015: no ecg changes, no signs of ischemia on echo, nl study mibi 03/2018: nl mpi, nl lvef tele: sr ecg: sr, nl intervals, no ischemic changes echo 12/2015: nl lv/rv, no sig valve path, nl rvsp cxr: clear lungs a/p: 43 m hx htn, asthma, here with cp. 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
[2019-05-20] MEDS: NEBIVOLOL 10 MG TABLET (FP) PO SCH (10:45)
[2019-05-20] MEDS: PANTOPRAZOLE 40 MG TABLET (FP) PO SCH (10:46)
[2019-05-20] MEDS: BUDESONIDE/FORMETEROL FUMARATE 80/4.5 mcg INHALER IH SCH ×2 (10:46→21:36)
--- NOTE | 2019-05-20 12:24 | EKG ---
Test Reason : Blood Pressure : / mmHG Vent. Rate : 060 BPM Atrial Rate : 060 BPM P-R Int : 160 ms QRS Dur : 090 ms QT Int : 432 ms P-R-T Axes : 015 045 011 degrees QTc Int : 432 ms NORMAL SINUS RHYTHM NONSPECIFIC T WAVE ABNORMALITY ABNORMAL ECG WHEN COMPARED WITH ECG OF 16-AUG-2018 15:14, NO SIGNIFICANT CHANGE WAS FOUND Confirmed by SAMREEN CROOK MD ([id number]) on 05/20/2019 12:24:25 PM Referred By: Confirmed By:SAMREEN CROOK MD
[2019-05-20] MEDS ORDERED: IBUPROFEN 400 MG TABLET (FP) PO ONE ×2 (12:27→21:14)
--- NOTE | 2019-05-20 13:52 | PN ---
Progress Note, Physician Chief Complaint: patient seen and examined getting echo done today has CP left side in arm and chest tender to palpation - Current Medication List Current Medications: Active Medications Albuterol Sulfate (Ventolin Hfa Inhaler -) 2 puff IH Q6H PRN PRN Reason: SHORT OF BREATH/WHEEZING Aspirin (Asa -) 81 mg PO DAILY [facility] Budesonide/Formoterol Fumarate (Symbicort 80/4.5mcg -) 2 puff IH BID [facility] Last Admin: 05/20/19 10:46 Dose: Not Given Nebivolol (Bystolic -) 10 mg PO DAILY [facility] Last Admin: 05/20/19 10:45 Dose: 10 mg Pantoprazole Sodium (Protonix -) 40 mg PO DAILY [facility] Last Admin: 05/20/19 10:46 Dose: 40 mg - Objective Vital Signs: Vital Signs Temperature 98.2 F 05/20/19 10:00 Pulse Rate 62 05/20/19 10:00 Respiratory Rate 20 05/20/19 10:00 Blood Pressure 141/97 05/20/19 10:00 O2 Sat by Pulse Oximetry (%) 100 05/20/19 10:00 Constitutional: Yes: Calm Cardiovascular: Yes: Regular Rate and Rhythm, S1, S2 Respiratory: Yes: CTA Bilaterally Gastrointestinal: Yes: Normal Bowel Sounds, Soft Edema: No Neurological: Yes: Alert, Oriented Labs: CBC, BMP 05/20/19 01:29 05/20/19 01:29 INR, PTT INR 0.97 (0.83-1.09) 05/20/19 01:29 Problem List - Problems (1) Chest wall pain Assessment/Plan: troponin elevated and now trending down cardiology on board echo pending most likely muscle pain motrin for pain aspirin Code(s): R07.89 - OTHER CHEST PAIN
--- NOTE | 2019-05-20 15:57 | ECHO ---
Name: CHAVA WALLACE Exam:Adult Echocardiogram Study Date: 05/20/2019 01:50 PM Age: 43 yrs Reason For Study: Chest pain Height: 72 in Weight: 200 lb BSA: 2.1 m2 MMode/2D Measurements & Calculations IVSd: 0.71 cm Ao root diam: 2.7 cm LVIDd: 5.7 cm LA dimension: 3.6 cm LVIDs: 3.4 cm LVPWd: 0.77 cm EDV(Teich): 162.9 ml LVOT diam: 2.0 cm ESV(Teich): 49.0 ml Doppler Measurements & Calculations MV E max billy: 59.2 cm/sec Ao V2 max: 100.1 cm/sec MV A max billy: 65.5 cm/sec Ao max P.0 mmHg MV E/A: 0.90 MV dec time: 0.01 sec MURIEL(V,D): 3.6 cm2 LV V1 max P.6 mmHg TR max billy: 181.3 cm/sec LV V1 max: 118.8 cm/sec TR max P.2 mmHg Med Peak E' Billy: 9.9 cm/sec Med E/e': 6.0 Lat Peak E' Billy: 8.4 cm/sec Lat E/e': 7.1 Procedure A complete two-dimensional transthoracic echocardiogram was performed (2D, M-mode, Doppler and color flow Doppler). Left Ventricle The left ventricular size, thickness and function are normal. The left ventricular ejection fraction is normal. Ejection Fraction = 55-60%. The left ventricular wall motion is normal. Right Ventricle The right ventricle is normal in size and function. Atria Normal left and right atrial size and function. Mitral Valve There is no mitral regurgitation noted. Tricuspid Valve There is trace tricuspid regurgitation. There was insufficient TR detected to calculate RV systolic p ressure. Aortic Valve No hemodynamically significant valvular aortic stenosis. No aortic regurgitation is present. Pulmonic Valve There is no pulmonic valvular regurgitation. Great Vessels The aortic root is normal size. Pericardium/Pleura There is no pericardial effusion. Interpretation Summary The left ventricular size, thickness and function are normal The right ventricle is normal in size and function. There is trace tricuspid regurgitation. MD Rufino Triplett 05/20/2019 03:57 PM
[2019-05-21 07:36] LABS: BASO % 1.3 % (0-2.0); EOS % 10.2 % (0-4.5); HEMATOCRIT 45.2 % (35.4-49); HEMOGLOBIN 15.3 GM/dL (11.7-16.9); LYMPH % 29.4 % (8-40); MCH 28.9 pg (25.7-33.7); MEAN PLT VOLUME 7.5 fl (7.5-11.1); MONO % 7.1 % (3.8-10.2); PLATELET COUNT 297 K/MM3 (134-434); RBC 5.31 M/mm3 (4.00-5.60); RDW 14.6 % (11.9-15.9); WHITE BLOOD COUNT 9.4 K/mm3 (4.0-10.0)
[2019-05-21 08:17] LABS: BLOOD UREA NITROGEN 14.1 mg/dL (7-18); CREATININE 1.2 mg/dL (0.55-1.3); POTASSIUM 4.7 mmol/L (3.5-5.1)
--- NOTE | 2019-05-21 09:31 | PN ---
Progress Note, Physician Chief Complaint: feeling well TELE: NSR NO SOB, dizziness - Current Medication List Current Medications: Active Medications Albuterol Sulfate (Ventolin Hfa Inhaler -) 2 puff IH Q6H PRN PRN Reason: SHORT OF BREATH/WHEEZING Aspirin (Asa -) 81 mg PO DAILY [facility] Budesonide/Formoterol Fumarate (Symbicort 80/4.5mcg -) 2 puff IH BID [facility] Last Admin: 05/20/19 21:36 Dose: Not Given Nebivolol (Bystolic -) 10 mg PO DAILY [facility] Last Admin: 05/20/19 10:45 Dose: 10 mg Pantoprazole Sodium (Protonix -) 40 mg PO DAILY [facility] Last Admin: 05/20/19 10:46 Dose: 40 mg - Objective Vital Signs: Vital Signs Temperature 98.2 F 05/21/19 01:53 Pulse Rate 54 L 05/21/19 05:00 Respiratory Rate 20 05/21/19 05:00 Blood Pressure 110/58 L 05/21/19 05:00 O2 Sat by Pulse Oximetry (%) 100 05/20/19 10:00 Constitutional: Yes: No Distress, Calm Eyes: Yes: Conjunctiva Clear Cardiovascular: Yes: Regular Rate and Rhythm Respiratory: Yes: CTA Bilaterally (no wheezing) Gastrointestinal: Yes: Soft Edema: No Neurological: Yes: Alert, Oriented Labs: CBC, BMP 05/21/19 06:00 05/21/19 06:00 INR, PTT INR 0.97 (0.83-1.09) 05/20/19 01:29 - ....Imaging EKG: Image Reviewed Assessment/Plan exercise stress echo 09/2015: no ecg changes, no signs of ischemia on echo, nl study mibi 03/2018: nl mpi, nl lvef tele: sr ecg: sr, nl intervals, no ischemic changes echo 12/2015: nl lv/rv, no sig valve path, nl rvsp cxr: clear lungs a/p: 43 m hx htn, asthma, here with cp. 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
[2019-05-21] MEDS ORDERED: IBUPROFEN 400 MG TABLET (FP) PO ONE (09:56)
[2019-05-21] MEDS ORDERED: ASPIRIN 81 MG CHEWABLE TABLETS PO SCH (10:00)
[2019-05-21] MEDS: PANTOPRAZOLE 40 MG TABLET (FP) PO SCH (10:07)
[2019-05-21] MEDS: NEBIVOLOL 10 MG TABLET (FP) PO SCH (10:07)
[2019-05-21] MEDS: BUDESONIDE/FORMETEROL FUMARATE 80/4.5 mcg INHALER IH SCH (10:09)
[2019-05-21 10:16] VITALS: BP 148/86; PULSE 80; TEMP 98
--- NOTE | 2019-05-21 11:49 | DS ---
Physical Examination Vital Signs: Vital Signs Temperature 98 F 05/21/19 09:00 Pulse Rate 80 05/21/19 09:00 Respiratory Rate 20 05/21/19 09:00 Blood Pressure 148/86 05/21/19 09:00 O2 Sat by Pulse Oximetry (%) 100 05/21/19 09:00 Constitutional: Yes: Calm Neck: Yes: Trachea Midline Cardiovascular: Yes: Regular Rate and Rhythm, S1, S2 Respiratory: Yes: CTA Bilaterally Gastrointestinal: Yes: Normal Bowel Sounds, Soft Labs: CBC, BMP 05/21/19 06:00 05/21/19 06:00 Discharge Summary Problems reviewed: Yes Reason For Visit: ELEVATED TROPONIN LEVEL,ATYPICAL CHEST PAIN Current Active Problems Chest pain (Acute) Chest wall pain (Acute) Other Procedures: left ventricle thickness and size normal Hospital Course: This is a 43 year old male, with a significant PMH of HTN, Asthma, TIAs, Chronic Parasthesias in UE. Who presents to the ED for left sided chest pain with radiation to his arm, for a few hours x yesterday. Patient reports sudden onset left-sided chest pain that began after throwing out trash. He states the pain is constant and radiates to his left scapula and LUE. Patient denies palpitations, SOB, numbness or tingling. Patient denies fever, chills, cough, dizziness, AP, N/V/D, constipation, dysuria admitted for atypical chest pain [facility] in nature echo done normal cardiac enzymes trending down Condition: Stable - Instructions Disposition: HOME - Home Medications Comprehensive Discharge Medication List: Ambulatory Orders Albuterol Sulfate 5 mg IH QID PRN 08/07/17 Fluticasone/Salmeterol [Advair 250-50 Diskus] 1 each IH BID 08/07/17 Nebivolol [Bystolic -] 10 mg PO DAILY 08/07/17 Ondansetron HCl [Zofran] 4 mg PO TID PRN #21 tablet 08/16/18 Pantoprazole Sodium [Protonix] 40 mg PO DAILY 08/16/18 Meclizine HCl [Antivert -] 25 mg PO TID 05/20/19
== END 2019-05-21 12:30 | disposition home or self-care (01) ==
LOC: JER 23:44 → JERBED 05-20 02:23 → J4W 05-20 04:13
PROVIDERS: ADMIT Internal Medicine; ATTEND Family Medicine
PROC: 3E0333Z Introduction of Anti-inflammatory into Peripheral Vein, Percutaneous Approach (ICD-10-PCS; principal; 2019-05-20)
DX: R07.89 Other chest pain (principal); R77.8 Other specified abnormalities of plasma proteins; I10 Essential (primary) hypertension; J45.909 Unspecified asthma, uncomplicated; R20.0 Anesthesia of skin; R20.2 Paresthesia of skin; Z86.73 Personal history of transient ischemic attack (TIA), and cerebral infarction without residual deficits
CPT/HCPCS: 36415; 71046-TC-FY; 80048; 80053; 80061; 80307; 81003; 82550; 82553; 83721; 83735; 84100; 84443; 84484; 85025; 85610; 93005; 93010; 93306-TC; 99285-25; G0378

== ENCOUNTER 2020-08-13 23:28 | Emergency (ER) | payer OTHER ==
[2020-08-13 23:57] VITALS: TEMP 98; BMI 35.5
[2020-08-14] MEDS ORDERED: KETOROLAC TROMETHAMINE 30 MG/1 ML VIAL IVPUSH ONE (00:17)
[2020-08-14] MEDS ORDERED: SODIUM CHLORIDE 1,000 ML IV STA (00:17)
[2020-08-14] MEDS ORDERED: FAMOTIDINE 20 MG/50 ML IVPB 20 MG/50 ML MG IVPB ONE ×2 (00:27→00:37)
[2020-08-14] MEDS ORDERED: MAG HYDROX/AL HYDROX/SIMETH -MYLANTA- ORAL SUSPENSION PO ONE (00:27)
[2020-08-14 00:35] LABS: BASO % 1.1 % (0-2.0); EOS % 5.5 % (0-4.5); HEMATOCRIT 43.8 % (35.4-49); HEMOGLOBIN 14.4 GM/dL (11.7-16.9); LYMPH % 35.3 % (8-40); MCH 28.2 pg (25.7-33.7); MCHC 32.9 g/dl (32.0-35.9); MEAN CELL VOLUME 85.8 fl (80-96); MEAN PLT VOLUME 7.8 fl (7.5-11.1); NEUT % 50.1 % (42.8-82.8); PLATELET COUNT 349 K/MM3 (134-434); RDW 14.4 % (11.9-15.9); WHITE BLOOD COUNT 9.7 K/mm3 (4.0-10.0)
[2020-08-14] MEDS ORDERED: MAG HYDROX/AL HYDROX/SIMETH 30 ML UNIT-DOSE CUP ONE (00:37)
[2020-08-14] MEDS ORDERED: KETOROLAC TROMETHAMINE 30 MG/1 ML VIAL ONE (00:37)
[2020-08-14 01:00] LABS: POTASSIUM 4.2 mmol/L (3.5-5.1)
[2020-08-14 01:02] LABS: CALCIUM 8.9 mg/dL (8.5-10.1)
[2020-08-14 01:03] LABS: ALBUMIN 3.4 g/dl (3.4-5.0); BLOOD UREA NITROGEN 17.2 mg/dL (7-18)
[2020-08-14 01:07] LABS: BILIRUBIN,TOTAL 0.3 mg/dL (0.2-1)
[2020-08-14 01:08] LABS: TOT PROT 7.1 g/dl (6.4-8.2)
[2020-08-14 01:42] VITALS: BP 136/81; PULSE 61
== END 2020-08-14 01:42 | disposition home or self-care (01) ==
LOC: JER 23:28
PROC: 3E033NZ Introduction of Analgesics, Hypnotics, Sedatives into Peripheral Vein, Percutaneous Approach (ICD-10-PCS; principal; 2020-08-14)
PROC: 3E0333Z Introduction of Anti-inflammatory into Peripheral Vein, Percutaneous Approach (ICD-10-PCS; 2020-08-14)
PROC: 3E0337Z Introduction of Electrolytic and Water Balance Substance into Peripheral Vein, Percutaneous Approach (ICD-10-PCS; 2020-08-14)
DX: R07.89 Other chest pain (principal)
CPT/HCPCS: 36415; 71045-TC-FY; 80053; 82550; 82553; 83690; 84484; 85025; 93005; 93010; 99285-25

== ENCOUNTER 2021-04-13 23:52 | Inpatient (IN) | payer OTHER ==
[2021-04-14] MEDS ORDERED: ASPIRIN 81 MG CHEWABLE TABLETS PO ONE (01:31)
[2021-04-14] MEDS ORDERED: ASPIRIN 81 MG CHEWABLE TABLETS ONE ×2 (01:36→10:37)
[2021-04-14 02:04] LABS: BASO % 1.2 % (0-2.0); EOS % 6.1 % (0-4.5); HEMATOCRIT 45.6 % (35.4-49); HEMOGLOBIN 15.4 GM/dL (11.7-16.9); LYMPH % 32.5 % (8-40); MCH 28.8 pg (25.7-33.7); MCHC 33.8 g/dl (32.0-35.9); MEAN CELL VOLUME 85.3 fl (80-96); MEAN PLT VOLUME 7.4 fl (7.5-11.1); MONO % 11.1 % (3.8-10.2); NEUT % 49.1 % (42.8-82.8); PLATELET COUNT 285 10^3/uL (134-434); RBC 5.35 M/mm3 (4.00-5.60); RDW 14.3 % (11.9-15.9); WHITE BLOOD COUNT 9.3 K/mm3 (4.0-10.0)
[2021-04-14 02:14] LABS: CALCIUM 8.4 mg/dL (8.5-10.1)
[2021-04-14 02:15] LABS: ALBUMIN 3.6 g/dl (3.4-5.0); BLOOD UREA NITROGEN 12.2 mg/dL (7-18)
[2021-04-14 02:19] LABS: BILIRUBIN,TOTAL 0.4 mg/dL (0.2-1); CHOLESTEROL 204 mg/dL (50-200)
[2021-04-14 02:20] LABS: TOT PROT 8.3 g/dl (6.4-8.2); TRIGLYCERIDES 200 mg/dL (0-150)
[2021-04-14 02:21] LABS: LDL CHOLESTEROL (ONLY SJRH) 132 mg/dL (5-100)
[2021-04-14 02:22] LABS: HDL CHOLESTEROL 45 mg/dL (40-60)
[2021-04-14 02:33] LABS: INR 0.87 (0.83-1.09); PROTHROMBIN TIME (PATIENT) 10.7 SEC (9.7-13.0)
[2021-04-14 02:36] LABS: ACTIVATED PTT 31.2 SECONDS (25.2-36.5)
[2021-04-14 03:01] LABS: URINE APPEARANCE CLEAR; URINE BILIRUBIN NEGATIVE (NEGATIVE); URINE COLOR YELLOW; URINE GLUCOSE (UA) NEGATIVE (NEGATIVE); URINE KETONE TRACE (NEGATIVE); URINE LEUK ESTERASE NEGATIVE (NEGATIVE); URINE NITRITE NEGATIVE (NEGATIVE); URINE PROTEIN NEGATIVE (NEGATIVE)
[2021-04-14] MEDS ORDERED: ALBUTEROL SO4 HFA INHALER IH PRN (04:02)
[2021-04-14] MEDS ORDERED: ACETAMINOPHEN 325 MG TABLET (FP) PO ONE (05:54)
[2021-04-14 06:40] LABS: HEMATOCRIT 41.2 % (35.4-49); HEMOGLOBIN 14.2 GM/dL (11.7-16.9); MCH 29.2 pg (25.7-33.7); MCHC 34.5 g/dl (32.0-35.9); MEAN CELL VOLUME 84.8 fl (80-96); MEAN PLT VOLUME 7.3 fl (7.5-11.1); PLATELET COUNT 262 10^3/uL (134-434); RBC 4.86 M/mm3 (4.00-5.60); RDW 14.4 % (11.9-15.9); WHITE BLOOD COUNT 8.4 K/mm3 (4.0-10.0)
[2021-04-14 07:08] LABS: BLOOD UREA NITROGEN 11.1 mg/dL (7-18); CALCIUM 8.5 mg/dL (8.5-10.1)
[2021-04-14 07:09] LABS: MAGNESIUM 2.7 mg/dL (1.8-2.4)
[2021-04-14] MEDS ORDERED: PT OWN MED DRAWER 7, Y5N ONE (10:37)
[2021-04-14] MEDS ORDERED: MECLIZINE HCL 25 MG TABLET (FP) ONE (10:38)
[2021-04-14] MEDS ORDERED: PANTOPRAZOLE 40 MG TABLET ONE (10:38)
[2021-04-14] MEDS: NEBIVOLOL 10 MG TABLET (FP) PO SCH (10:51)
[2021-04-14] MEDS: BUDESONIDE/FORMETEROL FUMARATE 160/4.5 mcg INHALER IH SCH (10:51)
[2021-04-14] MEDS: PANTOPRAZOLE 40 MG TABLET PO SCH (10:51)
[2021-04-14] MEDS: MECLIZINE HCL 25 MG TABLET (FP) PO SCH (10:51)
[2021-04-14] MEDS: ASPIRIN 81 MG CHEWABLE TABLETS PO SCH (10:51)
[2021-04-14] MEDS ORDERED: ALBUTEROL SO4 HFA INHALER IH ONE (10:52)
[2021-04-14] MEDS ORDERED: LORazepam 1 MG TABLET PO ONE (11:15)
[2021-04-14] MEDS ORDERED: LORazepam 1 MG TABLET ONE (12:01)
[2021-04-14] MEDS ORDERED: ACETAMINOPHEN 500 MG TABLET (FP) PO ONE (14:03)
[2021-04-14] MEDS ORDERED: ACETAMINOPHEN 325 MG TABLET (FP) ONE ×2 (14:03→22:33)
[2021-04-14] MEDS ORDERED: ACETAMINOPHEN 500 MG TABLET (FP) ONE (14:06)
[2021-04-14] MEDS ORDERED: LORazepam 2 MG/ML SDV VIAL ONE (14:15)
[2021-04-14] MEDS ORDERED: LORazepam 2 MG/ML SDV VIAL IVPUSH ONE (14:15)
[2021-04-14] MEDS ORDERED: ROSUVASTATIN CA 10 MG TABLET (FP) PO SCH (22:00)
[2021-04-14] MEDS ORDERED: ACETAMINOPHEN 325 MG TABLET (FP) PO PRN (22:27)
[2021-04-15 04:09] VITALS: BMI 35.1
[2021-04-15 07:33] VITALS: PULSE 60
[2021-04-15] MEDS: BUDESONIDE/FORMETEROL FUMARATE 160/4.5 mcg INHALER IH SCH ×2 (07:59→09:32)
[2021-04-15] MEDS: PANTOPRAZOLE 40 MG TABLET PO SCH (09:32)
[2021-04-15] MEDS: NEBIVOLOL 10 MG TABLET (FP) PO SCH (09:32)
[2021-04-15] MEDS: MECLIZINE HCL 25 MG TABLET (FP) PO SCH (09:32)
[2021-04-15] MEDS: ASPIRIN 81 MG CHEWABLE TABLETS PO SCH (09:32)
[2021-04-15 10:04] VITALS: BP 124/74; TEMP 97.6
== END 2021-04-15 13:15 | disposition home or self-care (01) | DRG 103 ==
LOC: JER 23:52 → JERBED 04-14 02:41 → J4S 04-15 02:17
PROVIDERS: ADMIT Internal Medicine; ATTEND Family Medicine
DX: G43.909 Migraine, unspecified, not intractable, without status migrainosus (principal); I10 Essential (primary) hypertension; E66.9 Obesity, unspecified; Z68.35 Body mass index [BMI] 35.0-35.9, adult; R20.2 Paresthesia of skin; G25.81 Restless legs syndrome; K21.9 Gastro-esophageal reflux disease without esophagitis
CPT/HCPCS: 36415; 70450-TC; 70551-TC; 71046-TC-FY; 80048; 80053; 80061; 81003; 82550; 82553; 82962; 83735; 84484; 85025; 85027; 85610; 85730; 86850; 86900; 86901; 93005; 93010; 93880-TC; 99285-25; C9803; U0003; U0005

== ENCOUNTER 2021-09-05 16:21 | Inpatient (IN) | payer OTHER ==
[2021-09-05] MEDS ORDERED: ONDANSETRON 4 MG/2 ML VIAL IVPUSH ONE (16:50)
[2021-09-05] MEDS ORDERED: SODIUM CHLORIDE 0.9% 500 ML INFUS.BAG IV ONE (16:51)
[2021-09-05] MEDS ORDERED: ONDANSETRON 4 MG/2 ML VIAL ONE (16:57)
[2021-09-05] MEDS ORDERED: FAMOTIDINE 20 MG/50 ML IVPB 20 MG/50 ML MG IVPB ONE ×2 (17:06→17:17)
[2021-09-05 17:50] LABS: BASO % 1.8 % (0-2.0); CHLORIDE 108 mmol/L (98-107); EOS % 9.5 % (0-4.5); HEMATOCRIT 46.4 % (35.4-49); HEMOGLOBIN 15.7 GM/dL (11.7-16.9); LYMPH % 30.4 % (8-40); MCH 29.1 pg (25.7-33.7); MCHC 33.9 g/dl (32.0-35.9); MEAN CELL VOLUME 85.8 fl (80-96); MEAN PLT VOLUME 7.2 fl (7.5-11.1); MONO % 7.6 % (3.8-10.2); NEUT % 50.7 % (42.8-82.8); PLATELET COUNT 294 10^3/uL (134-434); RBC 5.41 M/mm3 (4.00-5.60); RDW 14.8 % (11.9-15.9); SODIUM 140 mmol/L (136-145); WHITE BLOOD COUNT 8.6 K/mm3 (4.0-10.0)
[2021-09-05 17:53] LABS: CALCIUM 8.8 mg/dL (8.5-10.1)
[2021-09-05 17:54] LABS: ALBUMIN 3.7 g/dl (3.4-5.0); ANION GAP 4 MMOL/L (8-16); BLOOD UREA NITROGEN 11.3 mg/dL (7-18); CO2 28 mmol/L (21-32); GLUCOSE,RANDOM 97 mg/dL (74-106)
[2021-09-05 17:57] LABS: SGOT/AST 23 U/L (15-37); SGPT/ALT 45 U/L (13-61)
[2021-09-05 17:58] LABS: BILIRUBIN,TOTAL 0.3 mg/dL (0.2-1); TOT PROT 7.7 g/dl (6.4-8.2)
[2021-09-05 18:00] LABS: ALK PHOS 67 U/L (45-117)
[2021-09-05] MEDS ORDERED: ASPIRIN 325 MG TABLET PO ONE (18:31)
[2021-09-05 18:32] LABS: URINE APPEARANCE CLEAR; URINE BILIRUBIN NEGATIVE (NEGATIVE); URINE COLOR YELLOW; URINE GLUCOSE (UA) NEGATIVE (NEGATIVE); URINE KETONE TRACE (NEGATIVE); URINE LEUK ESTERASE NEGATIVE (NEGATIVE); URINE NITRITE NEGATIVE (NEGATIVE); URINE PROTEIN NEGATIVE (NEGATIVE); URINE UROBILINOGEN 0.2 mg/dL (0.2-1.0)
[2021-09-05] MEDS ORDERED: ASPIRIN 81 MG CHEWABLE TABLETS ONE (18:35)
[2021-09-05 20:53] LABS: ACTIVATED PTT 36.2 SECONDS (25.2-36.5); INR 0.97 (0.83-1.09); PROTHROMBIN TIME (PATIENT) 11.1 SEC (9.7-13.0)
[2021-09-05] MEDS ORDERED: HEPARIN SOD,PORK IN 0.45% NACL 25,000 UNITS/500 ML INFUS.BAG IVPB SCH (23:45)
[2021-09-05] MEDS ORDERED: HEPARIN NA (PORCINE) 5,000 UNITS/ML 1ML VIAL IVPUSH ONE (23:50)
[2021-09-05] MEDS ORDERED: HEPARIN NA (PORCINE) 5,000 UNITS/ML 1ML VIAL IVPUSH PRN ×2 (23:50)
[2021-09-06] MEDS ORDERED: HEPARIN INFUSION - 25,000 UNITS/500 ML INFUS.BAG IVPB ONE (01:30)
[2021-09-06] MEDS ORDERED: HEPARIN NA (PORCINE) 5,000 UNITS/ML 1ML VIAL ONE (01:30)
[2021-09-06 03:15] VITALS: BMI 36.3
[2021-09-06 08:06] LABS: BASO % 1.3 % (0-2.0); EOS % 8.3 % (0-4.5); HEMOGLOBIN 14.2 GM/dL (11.7-16.9); LYMPH % 35.3 % (8-40); MCH 29.2 pg (25.7-33.7); MCHC 33.8 g/dl (32.0-35.9); MEAN CELL VOLUME 86.4 fl (80-96); MEAN PLT VOLUME 7.6 fl (7.5-11.1); MONO % 7.4 % (3.8-10.2); NEUT % 47.7 % (42.8-82.8); PLATELET COUNT 271 10^3/uL (134-434); RBC 4.87 M/mm3 (4.00-5.60); RDW 14.3 % (11.9-15.9); WHITE BLOOD COUNT 10.2 K/mm3 (4.0-10.0)
[2021-09-06 08:27] LABS: ALBUMIN 3.2 g/dl (3.4-5.0); BLOOD UREA NITROGEN 10.2 mg/dL (7-18); CALCIUM 7.9 mg/dL (8.5-10.1)
[2021-09-06 08:31] LABS: BILIRUBIN,TOTAL 0.5 mg/dL (0.2-1); TOT PROT 6.6 g/dl (6.4-8.2)
[2021-09-06] MEDS: BUDESONIDE/FORMETEROL FUMARATE 80/4.5 mcg INHALER IH SCH ×3 (09:20→21:12)
[2021-09-06] MEDS: NEBIVOLOL 10 MG TABLET (FP) PO SCH ×2 (09:21→21:11)
[2021-09-06] MEDS: ASPIRIN 81 MG CHEWABLE TABLETS PO SCH (09:21)
[2021-09-06] MEDS: PANTOPRAZOLE 40 MG TABLET PO SCH (09:21)
[2021-09-06 14:01] LABS: LIPASE 80 U/L (73-393)
[2021-09-06] MEDS: MECLIZINE HCL 25 MG TABLET (FP) PO PRN ×2 (17:31→21:11)
[2021-09-06] MEDS ORDERED: ROSUVASTATIN CA 10 MG TABLET PO SCH (22:00)
[2021-09-06] MEDS ORDERED: ROSUVASTATIN CA 20 MG TABLET PO SCH (22:00)
[2021-09-07 08:24] LABS: MCH 28.7 pg (25.7-33.7); MCHC 33.4 g/dl (32.0-35.9); MEAN CELL VOLUME 85.8 fl (80-96); MEAN PLT VOLUME 7.7 fl (7.5-11.1); PLATELET COUNT 294 10^3/uL (134-434); RBC 5.24 M/mm3 (4.00-5.60); RDW 14.4 % (11.9-15.9); WHITE BLOOD COUNT 9.1 K/mm3 (4.0-10.0)
[2021-09-07] MEDS: NEBIVOLOL 10 MG TABLET (FP) PO SCH (09:53)
[2021-09-07] MEDS: ASPIRIN 81 MG CHEWABLE TABLETS PO SCH (09:53)
[2021-09-07] MEDS: PANTOPRAZOLE 40 MG TABLET PO SCH (09:53)
[2021-09-07] MEDS: BUDESONIDE/FORMETEROL FUMARATE 80/4.5 mcg INHALER IH SCH (10:15)
[2021-09-07 15:55] VITALS: BP 129/72; PULSE 58; TEMP 97.9
== END 2021-09-07 17:09 | disposition home or self-care (01) | DRG 313 ==
LOC: JERFT 16:21 → JER 16:21 → JERBED 20:09 → J4W 09-06 02:51
PROVIDERS: ADMIT Internal Medicine; ATTEND Family Medicine
DX: R07.89 Other chest pain (principal); I10 Essential (primary) hypertension; E78.5 Hyperlipidemia, unspecified; K21.9 Gastro-esophageal reflux disease without esophagitis; E86.0 Dehydration; J45.909 Unspecified asthma, uncomplicated; E66.9 Obesity, unspecified; Z68.36 Body mass index [BMI] 36.0-36.9, adult
CPT/HCPCS: 36415; 71046-TC-FY; 71250-TC; 74176-TC; 76705-TC; 80053; 80061; 81003; 82272; 82550; 82553; 83690; 84443; 84484; 85025; 85027; 85379; 85610; 85730; 93005; 93010; 99285-25; C9803; J1644; Q9967; U0003; U0005

== ENCOUNTER 2022-04-09 13:29 | Emergency (ER) | payer OTHER ==
[2022-04-09 13:42] VITALS: BP 147/88; PULSE 66; RESP 20; TEMP 98.6; BMI 36.2
[2022-04-09] MEDS ORDERED: SODIUM CHLORIDE 0.9% 500 ML INFUS.BAG IV ONE (14:45)
[2022-04-09] MEDS ORDERED: ACETAMINOPHEN 1000 MG/100 ML BAG IVPB ONE (14:45)
[2022-04-09] MEDS ORDERED: ACETAMINOPHEN INJECTION 100 ML IVPB ONE (14:51)
[2022-04-09] MEDS ORDERED: KETOROLAC TROMETHAMINE 30 MG/1 ML VIAL IVPUSH ONE (15:18)
[2022-04-09 15:45] LABS: PH,URINE 5.5 (5.0-8.0); URINE APPEARANCE CLEAR; URINE BILIRUBIN NEGATIVE (NEGATIVE); URINE COLOR YELLOW; URINE GLUCOSE (UA) NEGATIVE (NEGATIVE); URINE KETONE TRACE (NEGATIVE); URINE LEUK ESTERASE NEGATIVE (NEGATIVE); URINE NITRITE NEGATIVE (NEGATIVE); URINE PROTEIN NEGATIVE (NEGATIVE)
[2022-04-09 15:56] LABS: BASO % 1.2 % (0-2.0); EOS % 6.3 % (0-4.5); HEMATOCRIT 45.9 % (35.4-49); HEMOGLOBIN 15.2 GM/dL (11.7-16.9); LYMPH % 28.3 % (8-40); MCH 28.4 pg (25.7-33.7); MCHC 33.2 g/dl (32.0-35.9); MEAN CELL VOLUME 85.5 fl (80-96); MEAN PLT VOLUME 7.5 fl (7.5-11.1); MONO % 7.2 % (3.8-10.2); PLATELET COUNT 297 10^3/uL (134-434); RBC 5.36 M/mm3 (4.00-5.60); RDW 14.1 % (11.9-15.9); WHITE BLOOD COUNT 9.3 K/mm3 (4.0-10.0)
[2022-04-09 16:25] LABS: CALCIUM 8.3 mg/dL (8.5-10.1)
[2022-04-09 16:26] LABS: ALBUMIN 3.5 g/dl (3.4-5.0)
[2022-04-09 16:29] LABS: CREATININE 0.9 mg/dL (0.55-1.3)
[2022-04-09 16:30] LABS: BILIRUBIN,TOTAL 0.3 mg/dL (0.2-1); TOT PROT 7.8 g/dl (6.4-8.2)
== END 2022-04-09 18:36 | disposition home or self-care (01) ==
LOC: JER 13:29
PROC: 3E0333Z Introduction of Anti-inflammatory into Peripheral Vein, Percutaneous Approach (ICD-10-PCS; principal; 2022-04-09)
PROC: 3E0333Z Introduction of Anti-inflammatory into Peripheral Vein, Percutaneous Approach (ICD-10-PCS; 2022-04-09)
DX: R10.9 Unspecified abdominal pain (principal); M54.50 Low back pain, unspecified
CPT/HCPCS: 36415; 74176-TC; 80053; 81003; 82550; 82553; 83690; 85025; 87086; 87186; 99284-25

== ENCOUNTER 2022-07-15 20:27 | Emergency (ER) | payer OTHER ==
[2022-07-15 20:33] VITALS: BMI 36.2
[2022-07-16] MEDS ORDERED: MAGNESIUM SULF 50% (8.12 MEQ/2 ML-1 GM VIAL) IVPB ONE (00:20)
[2022-07-16] MEDS ORDERED: methylPREDNISolone NA SUCC 125 MG/2 ML VIAL IVPB ONE (00:20)
[2022-07-16] MEDS: ALBUTEROL SO4 2.5/IPRATROPIUM 0.5 INH SOL 3 ML VIAL.NEB. NEB SCH ×3 (00:27→00:48)
[2022-07-16] MEDS ORDERED: methylPREDNISolone NA SUCC 125 MG/2 ML VIAL ONE (00:28)
[2022-07-16] MEDS ORDERED: MAGNESIUM SULFATE IN WATER 2 GM/50 ML IVPB IVPB ONE (00:45)
[2022-07-16 00:52] LABS: BASO % 0.8 % (0-2.0); EOS % 7.1 % (0-4.5); HEMATOCRIT 46.5 % (35.4-49); HEMOGLOBIN 15.3 GM/dL (11.7-16.9); LYMPH % 32.9 % (8-40); MCH 27.9 pg (25.7-33.7); MCHC 32.9 g/dl (32.0-35.9); MEAN CELL VOLUME 84.7 fl (80-96); MEAN PLT VOLUME 7.3 fl (7.5-11.1); MONO % 8.5 % (3.8-10.2); NEUT % 50.7 % (42.8-82.8); PLATELET COUNT 308 10^3/uL (134-434); RBC 5.48 M/mm3 (4.00-5.60); RDW 14.4 % (11.9-15.9)
[2022-07-16 01:16] LABS: ALBUMIN 3.5 g/dl (3.4-5.0); CALCIUM 8.7 mg/dL (8.5-10.1)
[2022-07-16 01:17] LABS: BLOOD UREA NITROGEN 12.1 mg/dL (7-18); MAGNESIUM 2.3 mg/dL (1.8-2.4)
[2022-07-16 01:20] VITALS: BP 135/65; PULSE 70; RESP 17; TEMP 97.3
[2022-07-16 01:21] LABS: BILIRUBIN,TOTAL 0.3 mg/dL (0.2-1); TOT PROT 7.8 g/dl (6.4-8.2)
== END 2022-07-16 01:54 | disposition home or self-care (01) ==
LOC: JER 20:27
PROC: 3E0F7GC Introduction of Other Therapeutic Substance into Respiratory Tract, Via Natural or Artificial Opening (ICD-10-PCS; principal; 2022-07-15)
PROC: 3E033GC Introduction of Other Therapeutic Substance into Peripheral Vein, Percutaneous Approach (ICD-10-PCS; 2022-07-15)
PROC: 3E033GC Introduction of Other Therapeutic Substance into Peripheral Vein, Percutaneous Approach (ICD-10-PCS; 2022-07-15)
DX: J45.901 Unspecified asthma with (acute) exacerbation (principal)
CPT/HCPCS: 36415; 80053; 83735; 85025; 99284-25

== ENCOUNTER 2023-01-20 06:08 | Emergency (ER) | payer OTHER ==
[2023-01-20 06:16] VITALS: BMI 36.9
[2023-01-20] MEDS ORDERED: ACETAMINOPHEN 500 MG TABLET (FP) PO ONE (07:29)
[2023-01-20] MEDS ORDERED: MAG HYDROX/AL HYDROX/SIMETH 30 ML UNIT-DOSE CUP PO ONE (07:31)
[2023-01-20] MEDS ORDERED: FAMOTIDINE 20 MG TABLET PO ONE (07:31)
[2023-01-20] MEDS ORDERED: ACETAMINOPHEN 500 MG TABLET (FP) ONE (07:37)
[2023-01-20] MEDS ORDERED: FAMOTIDINE 20 MG TABLET ONE (07:37)
[2023-01-20] MEDS ORDERED: MAG HYDROX/AL HYDROX/SIMETH 30 ML UNIT-DOSE CUP ONE (07:37)
[2023-01-20 08:28] LABS: BASO % 1.2 % (0-2.0); EOS % 5.4 % (0-4.5); HEMATOCRIT 44.8 % (35.4-49); HEMOGLOBIN 15.1 GM/dL (11.7-16.9); LYMPH % 17.7 % (8-40); MCH 28.2 pg (25.7-33.7); MCHC 33.8 g/dl (32.0-35.9); MEAN CELL VOLUME 83.3 fl (80-96); MEAN PLT VOLUME 7.5 fl (7.5-11.1); MONO % 6.6 % (3.8-10.2); NEUT % 69.1 % (42.8-82.8); PLATELET COUNT 306 10^3/uL (134-434); RBC 5.38 M/mm3 (4.00-5.60); RDW 14.1 % (11.9-15.9)
[2023-01-20 08:39] LABS: POTASSIUM 4.3 mmol/L (3.5-5.1)
[2023-01-20 08:41] LABS: CALCIUM 8.8 mg/dL (8.5-10.1)
[2023-01-20 08:42] LABS: ALBUMIN 3.7 g/dl (3.4-5.0)
[2023-01-20 08:46] LABS: BILIRUBIN,TOTAL 0.4 mg/dL (0.2-1); TOT PROT 7.5 g/dl (6.4-8.2)
[2023-01-20] MEDS ORDERED: SUCRALFATE 1 GM TABLET (FP) PO ONE (10:31)
[2023-01-20] MEDS ORDERED: SUCRALFATE 1 GM TABLET (FP) ONE (10:38)
[2023-01-20 10:47] VITALS: BP 151/89; PULSE 59; TEMP 97.7
[2023-01-20 10:50] VITALS: RESP 18
== END 2023-01-20 13:29 | disposition home or self-care (01) ==
LOC: JER 06:08
DX: R10.13 Epigastric pain (principal); R11.10 Vomiting, unspecified; R61 Generalized hyperhidrosis
CPT/HCPCS: 36415; 71046-TC-FY; 76705-TC; 80053; 83690; 84484; 85025; 93005; 93010; 99285-25